=== PATIENT | female | born 1975 | race Caucasian/White ===

== ENCOUNTER 2020-08-13 05:29 | Emergency (ER) | payer OTHER ==
[~2020-08-13] VITALS: Ht 157.5 cm; Wt 66.0 kg
[~2020-08-13 05:29] MED LIST: AMOXICILLIN/CL875 MG OR; AMOXICILLIN/CL875 MG PO; AUGMENTIN875TAB OR; AUGMENTIN875TAB PO; CIPROFLOXACN500 MG PO; DIFLUCAN150 MG OR; DIFLUCAN150 MG PO; ONDANSETRON4 MG PO; ROCEPHIN 1 GM1 GM IM; SOLU-MEDROL125 MG IM; ULTRAM50 M1 PO; VALTREX500 MG PO; ZOLOFT25 MG PO
[2020-08-13] MEDS ORDERED: CELEBREX100 M1 PO (06:03)
[2020-08-13] MEDS ORDERED: GABAPENTIN100 MG PO (06:04)
[2020-08-13] MEDS ORDERED: ACETAMINOPHEN500 M1 PO (06:06)
[2020-08-13 06:14] LABS: HEMATOCRIT 37.6 % (37.0-47.0); IMMATURE GRANULOCYTES 0.1 % (0.0-5.0); MEAN CORPUSCULAR HGB 32.1 pG CALC (26.0-32.0); MEAN CORPUSCULAR HGB CONC 32.7 g/dL CAL (32.0-36.0); NEUT# 2.18 thou/uL (2.00-7.15); RED BLOOD COUNT 3.83 mill/uL (4.20-5.60); RED CELL DISTRI WIDTH 13.2 % (11.5-15.5)
[2020-08-13 06:15] LABS: HEMOGLOBIN 12.3 g/dl (12.0-16.0); MEAN CELL VOLUME 98.2 fL CALC (80.0-100.0)
[2020-08-13 06:32] LABS: ALBUMIN 4.5 g/dL (3.2-5.0); ALKALINE PHOSPHATASE 39 u/l (38-126); BUN 18 mg/dL (7-17); BUN/CREATININE RATIO 36 (12-20 (CALC)); CHLORIDE 100 mmol/l (95-108); CREATININE 0.5 mg/dL (0.5-1.0); GFR > 60 ML/MIN (>=60 (CALC)); GFR FOR AFR.AMER. > 60 ML/MIN (>=60 (CALC)); POTASSIUM 3.9 mmol/l (3.5-5.1); SGOT/AST 37 u/l (14-36); SODIUM 136 mmol/l (137-146); TOTAL PROTEIN 7.7 g/dL (6.3-8.2)
[2020-08-13 06:38] LABS: ANION GAP 12 (6-22 (CALC)); BILIRUBIN, TOTAL 0.3 mg/dL (0.0-1.4); CARBON DIOXIDE 28 mmol/l (22-30)
[2020-08-13 08:31] LABS: URINE BILIRUBIN - DIPSTICK NEGATIVE (NEGATIVE); URINE BLOOD DIPSTICK NEGATIVE (NEGATIVE); URINE COLOR YELLOW; URINE GLUCOSE - DIPSTICK NEGATIVE (NEGATIVE); URINE KETONE NEGATIVE (NEGATIVE); URINE LEUK ESTERASE NEGATIVE (NEGATIVE); URINE NITRITE - DIPSTICK NEGATIVE (Negative); URINE PROTEIN - DIPSTICK NEGATIVE (NEG-TRACE); URINE UROBILINOGEN - DIPSTICK 0.2 E.U./dL (0.2)
[2020-08-13 11:00] VITALS: BP 112/66
== END 2020-08-13 11:00 | disposition short-term general hospital (02) | DRG 552 ==
LOC: ED 05:29
PROVIDERS: Emergency Medicine; Student in an Organized Health Care Education/Training Program
DX: M51.27 Other intervertebral disc displacement, lumbosacral region (principal); M47.817 Spondylosis without myelopathy or radiculopathy, lumbosacral region; M48.07 Spinal stenosis, lumbosacral region; Z88.6 Allergy status to analgesic agent
CPT/HCPCS: J3360